=== PATIENT | male | born 1980 | race Caucasian/White ===

== ENCOUNTER 2021-06-16 14:19 | Outpatient (REF) | payer OTHER, SELFPAY ==
[2021-06-16 14:32] LABS: MANUAL DIFF FLAG NO
[2021-06-16 14:59] LABS: Basophils Percent Auto 0.2 % (0-2); Eosinophils Absolute Auto 0.2 X10*3/uL (0.0-0.4); Eosinophils Percent Auto 2.9 % (0-4); Hemoglobin 14.1 g/dl (14.0-18.0); Imm Gran Abs Auto 0.03 X10*3/uL (0.00-0.03); Imm Gran Pct Auto 0.6 % (0.0-0.4); Lymphocytes Absolute Auto 2.2 X10*3/uL (1.2-4.9); Lymphocytes Percent Auto 39.8 % (20-40); Mean Corpuscular HGB Conc 33.6 g/dl (31.0-36.0); Mean Corpuscular Hemoglobin 30.9 pg (27.0-33.0); Mean Corpuscular Volume 92.1 fL (80.0-98.0); Mean Platelet Volume 10.8 fL (9.4-12.4); Monocytes Absolute Auto 0.5 X10*3/uL (0.1-1.2); Monocytes Percent Auto 9.5 % (2-11); Neutrophils Absolute Auto 2.6 x10*3/uL (2.0-8.3); Platelet Count 229 X10*3/uL (160-400); Red Blood Count 4.56 X10*6/uL (4.60-5.80); Red Cell Distribution Width 12.5 % (11.0-16.0); White Blood Count 5.5 X10*3/uL (4.8-10.8)
[2021-06-16 15:22] LABS: Alanine Aminotransferase 33 U/L (0-40); Albumin Level 4.5 g/dL (3.5-5.0); Alkaline Phosphatase 57 U/L (39-117); Anion Gap 12 (12-20); Aspartate Amino Transferase 21 U/L (5-37); Bilirubin Total 0.8 mg/dL (0.0-1.0); Blood Urea Nitrogen 18 mg/dL (9-16); Calcium 9.5 mg/dL (8.4-10.2); Carbon Dioxide 27 mmol/L (22-29); Chloride 106 mmol/L (96-108); Cholesterol 157 mg/dL; Estimated Glomerular Filt Rate > 60; Glucose Random 95 mg/dL (60-115); Potassium 4.4 mmol/L (3.3-5.1); Sodium 141 mmol/L (135-145)
== END 2021-06-16 14:20 | disposition home or self-care (01) ==
LOC: HO.LAB 14:19
PROVIDERS: PCP Internal Medicine; Visit Provider Internal Medicine
DX: Z00.00 Encounter for general adult medical examination without abnormal findings (principal); R53.83 Other fatigue; R63.4 Abnormal weight loss
CPT/HCPCS: 36415; 80053; 82465; 84443; 85025

== ENCOUNTER 2021-12-14 15:55 | Outpatient (REF) | payer OTHER, SELFPAY ==
[2021-12-14 16:10] LABS: MANUAL DIFF FLAG NO
[2021-12-14 17:10] LABS: Basophils Percent Auto 0.4 % (0-2); Eosinophils Absolute Auto 0.2 X10*3/uL (0.0-0.4); Eosinophils Percent Auto 2.7 % (0-4); Hematocrit 45.6 % (42.0-52.0); Hemoglobin 15.7 g/dl (14.0-18.0); Imm Gran Abs Auto 0.02 X10*3/uL (0.00-0.03); Imm Gran Pct Auto 0.3 % (0.0-0.4); Lymphocytes Absolute Auto 2.6 X10*3/uL (1.2-4.9); Lymphocytes Percent Auto 34.7 % (20-40); Mean Corpuscular HGB Conc 34.4 g/dl (31.0-36.0); Mean Corpuscular Hemoglobin 32.5 pg (27.0-33.0); Mean Corpuscular Volume 94.4 fL (80.0-98.0); Mean Platelet Volume 10.9 fL (9.4-12.4); Monocytes Absolute Auto 0.6 X10*3/uL (0.1-1.2); Monocytes Percent Auto 8.6 % (2-11); Neutrophils Percent Auto 53.3 % (45-73); Platelet Count 218 X10*3/uL (160-400); Red Blood Count 4.83 X10*6/uL (4.60-5.80); Red Cell Distribution Width 12.4 % (11.0-16.0); White Blood Count 7.5 X10*3/uL (4.8-10.8)
[2021-12-14 17:25] LABS: Anion Gap 16 (12-20); Blood Urea Nitrogen 13 mg/dL (9-16); Calcium 9.6 mg/dL (8.4-10.2); Carbon Dioxide 27 mmol/L (22-29); Estimated Glomerular Filt Rate > 60; Glucose Random 90 mg/dL (60-115)
[2021-12-14 17:38] LABS: Chloride 101 mmol/L (96-108); Potassium 4.2 mmol/L (3.3-5.1); Sodium 140 mmol/L (135-145)
[2021-12-14 18:19] LABS: Vitamin B12 450 pg/mL (200-900)
[2021-12-21 11:37] LABS: Testosterone, Free 52.6 pg/mL (35.0-155.0); Testosterone, Total 365 ng/dL (250-1100)
== END 2021-12-14 15:56 | disposition home or self-care (01) ==
LOC: HO.LAB 15:55
PROVIDERS: PCP Internal Medicine; Visit Provider Internal Medicine
DX: R53.83 Other fatigue (principal); F32.A Depression, unspecified
CPT/HCPCS: 36415; 80048; 82607; 84402; 84403; 85025

== ENCOUNTER 2023-07-13 16:03 | Outpatient (REF) | payer OTHER, SELFPAY ==
--- NOTE | ~2023-07-13 | XR_ITS ---
EXAMINATION: XR FOOT, LEFT CLINICAL INFORMATION: Left foot pain. COMPARISON: None available. TECHNIQUE: AP, lateral, and oblique views of the left foot. FINDINGS: The bone mineralization is normal. Metatarsus adductus, hallux valgus. Mild degenerative changes in the first metatarsophalangeal joint. XR/XR foot LT min 3V IMPRESSION: Metatarsus adductus, hallux valgus. Mild degenerative changes in the first metatarsophalangeal joint. Recommend follow-up imaging in 10-14 days if fracture is suspected.
[2023-07-13 16:23] LABS: MANUAL DIFF FLAG NO
[2023-07-13 17:29] LABS: Basophils Percent Auto 0.6 % (0-2); Eosinophils Absolute Auto 0.2 X10*3/uL (0.0-0.4); Hematocrit 44.9 % (42.0-52.0); Hemoglobin 15.5 g/dl (14.0-18.0); Imm Gran Abs Auto 0.02 X10*3/uL (0.00-0.03); Imm Gran Pct Auto 0.3 % (0.0-0.4); Lymphocytes Absolute Auto 1.9 X10*3/uL (1.2-4.9); Lymphocytes Percent Auto 30.5 % (20-40); Mean Corpuscular HGB Conc 34.5 g/dl (31.0-36.0); Mean Corpuscular Hemoglobin 32.9 pg (27.0-33.0); Mean Corpuscular Volume 95.3 fL (80.0-98.0); Mean Platelet Volume 10.3 fL (9.4-12.4); Monocytes Absolute Auto 0.6 X10*3/uL (0.1-1.2); Neutrophils Absolute Auto 3.5 x10*3/uL (2.0-8.3); Neutrophils Percent Auto 55.6 % (45-73); Platelet Count 217 X10*3/uL (160-400); Red Blood Count 4.71 X10*6/uL (4.60-5.80); Red Cell Distribution Width 12.2 % (11.0-16.0); White Blood Count 6.3 X10*3/uL (4.8-10.8)
[2023-07-13 17:56] LABS: Alanine Aminotransferase 174 U/L (0-40); Albumin Level 4.6 g/dL (3.5-5.0); Alkaline Phosphatase 56 U/L (39-117); Anion Gap 16 (12-20); Aspartate Amino Transferase 89 U/L (5-37); Bilirubin Total 1.1 mg/dL (0.0-1.0); Blood Urea Nitrogen 12 mg/dL (9-16); Calcium 9.3 mg/dL (8.4-10.2); Carbon Dioxide 25 mmol/L (22-29); Chloride 104 mmol/L (96-108); Cholesterol 199 mg/dL (<200); Estimated Glomerular Filt Rate > 60; Glucose Random 86 mg/dL (60-115); Potassium 4.4 mmol/L (3.3-5.1); Sodium 141 mmol/L (135-145); Total Protein 7.7 g/dL (6.5-8.0); Uric Acid 8.7 mg/dL (3.4-7.0)
== END 2023-07-13 16:04 | disposition home or self-care (01) ==
LOC: HO.LAB 16:03
PROVIDERS: PCP Internal Medicine; Visit Provider Internal Medicine
DX: M79.672 Pain in left foot (principal); U07.0 Vaping-related disorder; I10 Essential (primary) hypertension; Z83.3 Family history of diabetes mellitus
CPT/HCPCS: 36415; 73630; 80053; 82465; 84550; 85025

== ENCOUNTER 2023-09-29 13:00 | Outpatient (REF) | payer OTHER, SELFPAY ==
[2023-09-29 13:20] LABS: MANUAL DIFF FLAG NO
[2023-09-29 13:48] LABS: Basophils Percent Auto 0.4 % (0-2); Eosinophils Absolute Auto 0.1 X10*3/uL (0.0-0.4); Eosinophils Percent Auto 2.2 % (0-4); Hematocrit 44.2 % (42.0-52.0); Hemoglobin 15.1 g/dl (14.0-18.0); Imm Gran Abs Auto 0.02 X10*3/uL (0.00-0.03); Imm Gran Pct Auto 0.4 % (0.0-0.4); Lymphocytes Absolute Auto 2.1 X10*3/uL (1.2-4.9); Mean Corpuscular HGB Conc 34.2 g/dl (31.0-36.0); Mean Corpuscular Hemoglobin 32.2 pg (27.0-33.0); Mean Corpuscular Volume 94.2 fL (80.0-98.0); Mean Platelet Volume 10.7 fL (9.4-12.4); Monocytes Absolute Auto 0.5 X10*3/uL (0.1-1.2); Monocytes Percent Auto 10.6 % (2-11); Neutrophils Absolute Auto 2.2 x10*3/uL (2.0-8.3); Neutrophils Percent Auto 44.4 % (45-73); Platelet Count 225 X10*3/uL (160-400); Red Blood Count 4.69 X10*6/uL (4.60-5.80); Red Cell Distribution Width 11.9 % (11.0-16.0); White Blood Count 4.9 X10*3/uL (4.8-10.8)
[2023-09-29 14:08] LABS: Alanine Aminotransferase 109 U/L (0-40); Albumin Level 4.6 g/dL (3.5-5.0); Alkaline Phosphatase 55 U/L (39-117); Anion Gap 16 (12-20); Aspartate Amino Transferase 43 U/L (5-37); Bilirubin Total 0.8 mg/dL (0.0-1.0); Blood Urea Nitrogen 15 mg/dL (9-16); Calcium 9.8 mg/dL (8.4-10.2); Carbon Dioxide 23 mmol/L (22-29); Chloride 106 mmol/L (96-108); Estimated Glomerular Filt Rate > 60; Glucose Random 96 mg/dL (60-115); Potassium 3.8 mmol/L (3.3-5.1); Sodium 141 mmol/L (135-145); Total Protein 7.1 g/dL (6.5-8.0)
== END 2023-09-29 13:01 | disposition home or self-care (01) ==
LOC: HO.LAB 13:00
PROVIDERS: PCP Internal Medicine; Visit Provider Internal Medicine
DX: R94.5 Abnormal results of liver function studies (principal)
CPT/HCPCS: 36415; 80053; 85025

== ENCOUNTER 2023-11-29 16:29 | Outpatient (REF) | payer OTHER, SELFPAY ==
[2023-11-29 16:50] LABS: MANUAL DIFF FLAG NO
[2023-11-29 17:40] LABS: Basophils Percent Auto 0.6 % (0-2); Eosinophils Absolute Auto 0.1 X10*3/uL (0.0-0.4); Eosinophils Percent Auto 2.9 % (0-4); Hematocrit 45.2 % (42.0-52.0); Hemoglobin 15.5 g/dl (14.0-18.0); Imm Gran Abs Auto 0.01 X10*3/uL (0.00-0.03); Imm Gran Pct Auto 0.2 % (0.0-0.4); Lymphocytes Absolute Auto 1.9 X10*3/uL (1.2-4.9); Lymphocytes Percent Auto 39.5 % (20-40); Mean Corpuscular HGB Conc 34.3 g/dl (31.0-36.0); Mean Corpuscular Hemoglobin 31.9 pg (27.0-33.0); Mean Platelet Volume 10.4 fL (9.4-12.4); Monocytes Absolute Auto 0.5 X10*3/uL (0.1-1.2); Neutrophils Absolute Auto 2.2 x10*3/uL (2.0-8.3); Neutrophils Percent Auto 45.8 % (45-73); Platelet Count 206 X10*3/uL (160-400); Red Blood Count 4.86 X10*6/uL (4.60-5.80); Red Cell Distribution Width 12.4 % (11.0-16.0); White Blood Count 4.8 X10*3/uL (4.8-10.8)
[2023-11-29 17:58] LABS: Alanine Aminotransferase 56 U/L (0-40); Albumin Level 4.6 g/dL (3.5-5.0); Alkaline Phosphatase 57 U/L (39-117); Anion Gap 12 (12-20); Aspartate Amino Transferase 30 U/L (5-37); Bilirubin Total 0.9 mg/dL (0.0-1.0); Blood Urea Nitrogen 18 mg/dL (9-16); Calcium 9.3 mg/dL (8.4-10.2); Carbon Dioxide 30 mmol/L (22-29); Chloride 106 mmol/L (96-108); Estimated Glomerular Filt Rate > 60; Ethanol < 10 mg/dL; Glucose Random 82 mg/dL (60-115); Potassium 4.4 mmol/L (3.3-5.1); Sodium 144 mmol/L (135-145); Total Protein 7.7 g/dL (6.5-8.0)
[2023-11-30 04:04] LABS: CT PCR NOT DETECTED (Not Detect.); NG PCR NOT DETECTED (Not Detect.)
[2023-11-30 07:32] LABS: HIV AB/AG Nonreactive (Nonreactive); HIV Num 1 0.04 S/CO (0.00-0.99); ~HepC Num1 0.22 S/CO (0.00-0.79); ~Hepatitis C Antibody Nonreactive (Nonreactive)
[2023-11-30 07:57] LABS: Syphilis Screen Nonreactive (Nonreactive)
== END 2023-11-29 16:30 | disposition home or self-care (01) ==
LOC: HO.LAB 16:29
PROVIDERS: PCP Internal Medicine; Visit Provider Internal Medicine
DX: Z11.3 Encounter for screening for infections with a predominantly sexual mode of transmission (principal); R79.89 Other specified abnormal findings of blood chemistry
CPT/HCPCS: 80053; 80307; 85025; 86780; 86803; 87389; 87491; 87591

== ENCOUNTER 2024-03-19 14:40 | Outpatient (AMB) | payer OTHER, SELFPAY ==
[2024-03-19 15:56] VITALS: BP 112/80; PULSE 88; TEMP 37.2; O2SAT 97
--- NOTE | 2024-03-19 15:56 | MHC.OFFWIV ---
Intake Vital Signs 03/19/24 15:56 Weight 198 lb BP 112/80 Blood Pressure Location Rt brachial Position Sitting Pulse 88 Pulse Source Pulse Oximeter Temp 98.9 F Temp Source Oral Pulse Oximetry (%) 97 Oxygen Delivery Method Room Air Intake Visit Reasons: EP Cough 1+ week Intake Note: Patient here for cough and SOB that has been present for about 1 week. Patient Tobacco Use Status: Former Tobacco user Allergies No Known Allergies Allergy (Verified 03/19/24 16:17) Medication List - Last Reconciled 03/19/24 by Keya Smith PA-C No Known Home Meds Do you need a note to return to daycare/school/sports/work: No HPI HPI Comments History of Present Illness Details The patient is a 43-year-old male presenting with a primary complaint of a persistent cough that has persisted for approximately one week. He reports that the cough is productive, with clear mucus. He previously experienced shortness of breath approximately five to six days ago, which has since resolved. The patient describes the cough as severe enough to cause discomfort in the lungs and abdominal area. He denies fever, sore throat, ear pain, and significant nasal congestion, although he mentions experiencing sweats at the onset without a fever. There is no history of nausea, vomiting, or diarrhea. The patient has no known history of chronic obstructive pulmonary disease (COPD), asthma, or congestive heart failure. He is a smoker but also uses electronic cigarettes and cannabis. - Lives at home with parents - Works from home - Smokes cigarettes, actively vapes, and uses cannabis - No recent travel [facility] Social History Patient Tobacco Use Status: Former Tobacco user Review of Systems Const Details: - Respiratory: Reports cough, denies ongoing shortness of breath. - Gastrointestinal: Denies nausea, vomiting, diarrhea, abdominal pain except due to coughing. - Constitutional: Reports sweats at the onset, denies current fever. - HEENT: Denies sore throat, ear pain. All systems reviewed & are unremarkable except as noted in HPI and below Physical Exam Vital Signs: Last Vital Signs Temp 98.9 F 03/19/24 15:56 Pulse 88 03/19/24 15:56 BP 112/80 03/19/24 15:56 Pulse Ox 97 03/19/24 15:56 Oxygen Delivery Method Room Air 03/19/24 15:56 Const Other: Appearance: Alert. Oriented X3. No acute distress. Head: Normal external exam. Normocephalic. Atraumatic. Eyes: Pupils are equal, round, and reactive to light. Extraocular movements intact. Conjunctiva and sclera normal. Eyelids normal. Ears: External auditory canal normal. Tympanic membranes normal. Throat: Pharynx appears slightly red. Uvula midline. Moist mucous membranes. No trismus noted. No drooling noted. No muffled voice noted. Neck: Normal inspection. Neck supple. Full range of motion. No adenopathy. Thyroid Normal. No meningeal signs. No neck mass noted. Cardiovascular: Normal heart rate and rhythm. Heart sound normal. No murmurs noted. Pulses normal throughout. Respiratory: No respiratory distress. Painless inspiration. Breath sounds normal. No wheezes/rales/rhonchi noted. Chest nontender. No accessory muscle usage noted or decreased air movement noted. Abdomen: Soft and nontender. Bowel sounds normal in all 4 quadrants. No distention noted. No organomegaly noted. No visible injury noted. Back: No costovertebral angle tenderness. Full range of motion noted. Skin: Skin warm and dry. Normal skin color. Normal skin turgor. No rashes/lesions/lacerations noted. Extremities: No lower extremity edema. Extremities exhibit normal range of motion. Extremities nontender. Neuro: Oriented X 3. No motor deficit. No sensory deficit. Reflexes normal. Assessment & Plan Assessment & Plan (1) Bronchitis: Code(s): J40 - Bronchitis, not specified as acute or chronic Plan: This patient presents with acute cough, most consistent with bronchitis. Presentation not consistent with acute bacterial pneumonia, influenza, asthma, transient airway hyperresponsiveness. Presentation not consistent with chronic causes of cough (including GERD, asthma, postnasal discharge, medication side effect, CHF, lung cancer or mass). Plan: CXR, then d/c with abx, albuterol and prednisone, supportive care, and follwo up PCP Plan - Consider chest X-ray to rule out pneumonia. - Prescribe Augmentin for potential bronchitis treatment. - Consider corticosteroids to address inflammation. - Prescribe cough medicine to alleviate cough symptoms. I discussed with the patient that the cough and lung discomfort are likely due to bronchitis. I explained that while his lungs appear clear, we will perform a chest X-ray to ensure there is no underlying pneumonia. I provided information on the prescription plan involving antibiotics, possibly corticosteroids, and cough medicine. I advised that these measures should help improve his symptoms significantly. The importance of avoiding exposure to further respiratory irritants, possibly reducing smoking, and awareness of return precautions such as worsening symptoms or the development of new symptoms were highlighted. Follow-up care was discussed, and the patient was encouraged to return if symptoms persist or worsen. Patient was informed and verbally consented to the use of an ambient scribe for clinic note documentation during this visit. Orders: Orders XR chest 2V 03/19/24 R05.9 - Cough, unspecified Medications: New albuterol sulfate 90 mcg/actuation 1 inh inhalation QID PRN 6.7 grams 0RF shortness of breath or wheezing amoxicillin-pot clavulanate 875-125 mg 1 tab PO BID 10 days 20 tabs 0RF prednisone 40 mg (2 x 20 mg) PO DAILY 5 days 10 tabs 0RF Patient Instructions: - Complete the full course of antibiotics as prescribed. - Take cough medicine as directed to alleviate cough symptoms. - Avoid smoking and consider reducing respiratory irritants if possible. - Seek medical attention if symptoms worsen, such as if shortness of breath returns or if you develop a fever. - Follow up after completing medication or sooner if symptoms persist or worsen. Coding Level of Care Code New Pt Level 4 (96714) Diagnoses Bronchitis J40
== END 2024-03-19 16:20 | disposition home or self-care (01) ==
PROVIDERS: PCP Internal Medicine; Visit Provider Physician Assistant Medical
DX: J40 Bronchitis, not specified as acute or chronic (principal)

== ENCOUNTER 2024-03-19 14:40 | Outpatient (REF) | payer OTHER, SELFPAY ==
--- NOTE | ~2024-03-19 | XR_ITS ---
EXAMINATION: XR CHEST CLINICAL INFORMATION: R05.9 - Cough, unspecified COMPARISON: None available. TECHNIQUE: 2 views of the chest were obtained. FINDINGS: No consolidation, pleural effusion or pneumothorax. Cardiomediastinal silhouette is normal in size. S-shaped curvature of the thoracic spine. XR/XR chest 2V IMPRESSION: No acute airspace disease. Mild scoliosis, thoracic spine. Electronically signed by: Rony Duran MD 03/21/2024 04:08 PM [facility]
== END 2024-03-19 14:41 | disposition home or self-care (01) ==
LOC: HO.HMGCX 14:40
PROVIDERS: PCP Internal Medicine; Visit Provider Physician Assistant Medical
DX: R05.9 Cough, unspecified (principal)
CPT/HCPCS: 71046

== ENCOUNTER → 2024-03-19 16:14 | Outpatient (BNV) | payer OTHER, SELFPAY | PROVIDERS: PCP Internal Medicine; Visit Provider Radiology Diagnostic Radiology | DX: R05.9 Cough, unspecified (principal) | CPT/HCPCS: 71046 ==

== ENCOUNTER 2024-07-03 13:59 | Outpatient (AMB) | payer OTHER, SELFPAY ==
--- NOTE | 2024-07-03 14:02 | MHC.OFFWIV ---
Intake Vital Signs 07/03/24 14:07 Weight 207 lb BP 120/84 Blood Pressure Location Rt brachial Position Sitting Pulse 88 Pulse Source Pulse Oximeter Temp 98.1 F Temp Source Oral Pulse Oximetry (%) 96 Oxygen Delivery Method Room Air Intake Visit Reasons: EP-cough, vomiting, heartburns Intake Note: Patient here for cough that has been present for a couple of months. Patient Tobacco Use Status: Former Tobacco user Allergies No Known Allergies Allergy (Verified 07/03/24 14:07) Do you need a note to return to daycare/school/sports/work: No HPI HPI Comments History of Present Illness Details This is a 43-year-old male with no stated past medical history presenting for evaluation of a cough, postnasal drip an itchy throat that he has had for the past 2 months. Patient states that he will occasionally feel nauseous due to the postnasal drip. Patient denies having any fevers or chills but states that his symptoms are worse at night. He denies having any fevers, chills, headache, visual changes or ear pain. [facility] Social History Patient Tobacco Use Status: Former Tobacco user Review of Systems Const All systems reviewed & are unremarkable except as noted in HPI and below Reports as per HPI, Denies chills, Denies fatigue and Denies fever(s) Eyes Reports no additional complaints ENT Denies dysphagia, Reports post nasal drip and Reports other (itchy throat) Card Denies dyspnea Resp Reports cough, Denies hemoptysis and Denies dyspnea GI Denies dysphagia, Reports nausea and Denies vomiting Reports no additional complaints Musc Reports no additional complaints Skin/Breast Reports system reviewed and no additional complaints, except as documented Neuro Reports no additional complaints Psych Reports no additional complaints Endo Reports no additional complaints and Denies fatigue Rogelio/Lymph Reports no additional complaints Aller/Immun Reports no additional complaints Physical Exam Vital Signs: Last Vital Signs Temp 98.1 F 07/03/24 14:07 Pulse 88 07/03/24 14:07 BP 120/84 07/03/24 14:07 Pulse Ox 96 07/03/24 14:07 Oxygen Delivery Method Room Air 07/03/24 14:07 Const General: cooperative, healthy appearing, comfortable, no acute distress, well developed, alert, awake and Physically active Nutritional Appearance: well nourished Orientation/consciousness: patient oriented x3 Limitations: no limitations HEENT Head: Yes normal to inspection and Yes normocephalic Ears: hearing grossly normal bilaterally, external ears normal, TM's normal bilaterally and EAC's normal General nose exam: Normal external nose present Face and sinus: Yes normal facial exam Mouth: moist mucous membranes Throat: Yes posterior oropharynx normal (There is no edema, erythema or exudates of the posterior oropharynx) and Yes postnasal drainage Eyes General: appearance normal, both eyes and all related structures Neck Lymphatic: no lymphadenopathy noted Resp Effort & Inspection: normal respiratory effort, able to speak in complete sentences, no audible wheezes, no cough and not tachypneic Auscultation: clear to auscultation bilaterally Cardio Rate: regular rate Rhythm: regular rhythm Skin General skin exam: no rashes or lesions noted Neuro General: patient oriented x3 Psych Appearance: grossly normal Mental Status: mental status grossly normal Insight: Good insight present (Psych) Judgement: Good judgement present (Psych) Assessment & Plan Assessment & Plan (1) Cough: Comment: Lungs are clear to auscultation bilaterally, there is no tachypnea. Cough is most likely related to postnasal drip. Will prescribe antihistamines. Code(s): R05.9 - Cough, unspecified Qualifiers: Cough type: subacute Qualified Code(s): R05.2 - Subacute cough Plan: Loratadine once daily times 30 days. (2) Postnasal drip: Comment: There is no evidence of a bacterial sinusitis or acute bacterial pharyngitis. Patient will be discharged with fluticasone nasal spray. Code(s): R09.82 - Postnasal drip Plan: Fluticasone 1 spray each nostril once daily times 30 days Medications: New loratadine (Allergy Relief (loratadine)) 10 mg PO DAILY 30 caps 0RF fluticasone propionate 50 mcg/actuation administer into each nostril 1 spray intranasal DAILY 16 grams 1RF Coding Level of Care Code Est Pt Level 3 (46524) Diagnoses Subacute cough R05.2 Cough type: subacute Postnasal drip R09.82 Time Spent (min) 20
[2024-07-03 14:07] VITALS: BP 120/84; PULSE 88; TEMP 36.7; O2SAT 96
== END 2024-07-03 14:49 | disposition home or self-care (01) ==
PROVIDERS: PCP Internal Medicine; Visit Provider Physician Assistant
DX: R05.2 Subacute cough (principal); R09.82 Postnasal drip

== ENCOUNTER → 2024-07-03 13:59 | Outpatient (BNVA) | payer OTHER, SELFPAY | PROVIDERS: PCP Internal Medicine; Visit Provider Physician Assistant | DX: Z13.89 Encounter for screening for other disorder (principal) ==